=== PATIENT | female | born 1990 | race Caucasian/White ===

== ENCOUNTER 2018-12-19 12:24 | Emergency (ER) | payer OTHER, MEDICAID ==
[2018-12-19] MEDS ORDERED: Albuterol/Ipratropium Neb 3 ML AERS HHN ONE ×4 (12:27→13:51)
--- NOTE | 2018-12-19 12:33 | ED Physician Chart ---
ED Chief Complaint/HPI - Patient Information Date Seen:: 12/19/18 Time Seen:: 12:00 Chief Complaint:: pleuritic chest pain History of Present Illness:: Patient developed pleuritic chest pain and pressure this morning. No recent upper respiratory tract infection, cough or fever. No history of environmental allergies or asthma. Allergies:: Allergies Allergy/AdvReac Type Severity Reaction Status Date / Time No Known Allergies Allergy Verified 12/19/18 12:26 Historian:: Patient Review:: Nurse's Note Reviewed ED Review of Systems - Review of Systems General/Constitutional: No fever, No chills Skin: No skin lesions Head: No headache Eyes: No loss of vision ENT: No earache Neck: No neck pain, No swelling Cardio Vascular: Chest pain Pulmonary: Other (pleuritic chest pain) GI: No nausea, No vomiting, No diarrhea Musculoskeletal: No bone or joint pain Endocrine: No polyuria Psychiatric: No prior psych history, No depression, No anxiety Hematopoietic: No bruising Allergic/Immuno: No urticaria Neurological: No syncope, No focal symptoms ED Past Medical History - Past Medical History Past Medical History: No significant medical hx Family History: None Social History: Non Smoker, Alcohol, Other (occasional alcohol consumption) Surgical History: other (cardiac surgery for "hole in the heart" at age 2) Psychiatricy History: None Medication: None Family Medical History - Family Member Mother History Unknown: Yes ED Physical Exam - Physical Examination General/Constitutional: Awake, Well-developed, well-nourished, Alert Head: Atraumatic Eyes: Lids, conjuctiva normal, PERRL Skin: No rash Other Skin comments:: 30 cm long oblique scar left superior back ENMT: External ears, nose nl, TM canals nl, Nasal exam nl, Lips, teeth, gums nl , Oropharynx nl, Tonsils nl Neck: No nuchal rigidity Respiratory: Nl effort/Exclusion, Clear to Auscultation, No Wheeze/Rhonchi/Rales Other Respiratory comments:: Expiratory sounds decreased Cardio Vascular: RRR, No murmur, gallop, rubs, NL S1 S2 GI: No tenderness/rebounding/guarding, No organomegaly, No hernia, Normal BS's : No CVA tenderness Extremities: Normal digits & nails Neuro/Psych: No focal deficits Misc: No paraspinal tenderness ED Labs/Radiology/EKG Results - EKG Interpretations Rate & Rhythm: EKG showed a normal sinus rhythm with a rate of 73 ED Assessment - Assessment General Assessment: After the first breathing treatment patient felt slightly improved. Auscultation of the chest after the first breathing treatment revealed decreased breath sounds on the left side. Chest x-ray was taken which showed no infiltrate or pneumothorax. Patient was given a second albuterol and Atrovent breathing treatment after which she felt better. I reviewed the patient's chest pain is due to reactive airway disease andis certainly not cardiac in etiology ED Septic Shock - . Is Septic Shock (SBP<90, OR Lactate>4 mmol\\L) present?: No ED Reassessment (Disposition) - Reassessment Reassessment Condition:: Improved - Diagnosis Diagnosis:: Atypical chest pain - Aftercare/Follow up Instructions Aftercare/Follow-Up Instructions:: Refer to Discharge Instructions Medication Prescribed:: Albuterol metered-dose inhaler to use 2 puffs every 4 hours as necessary for chest pain or shortness of breath - Patient Disposition Discharge/Transfer:: Home Condition at Disposition:: Stable, Improved
--- NOTE | 2018-12-19 13:55 | Diagnostic Imaging Report ---
CHEST X-RAY: AP view INDICATION: Pleuritic chest pain COMPARISON: None FINDINGS: Minimal left lateral pleural thickening is noted. No focal consolidation, pleural effusions or evidence of pneumothorax. Heart size is normal. There may have been previous trauma to the left third and fourth ribs. IMPRESSION: No evidence of pneumothorax or focal consolidation. Left lateral pleural thickening. There may have been previous trauma to the left third and fourth ribs please correlate with clinical history and old exams.
== END 2018-12-19 14:30 | disposition home or self-care (01) ==
LOC: ER 12:24
DX: R07.89 Other chest pain (principal)
CPT/HCPCS: 71045-TC; 81025-TC; 93005; 94640